=== PATIENT | female | born 1940 | race Two or more races ===

== ENCOUNTER 2020-07-03 09:00 | Outpatient (CLI) | payer OTHER | END 2020-07-03 23:59 | disposition home or self-care (01) | LOC: MSC 09:00 | PROVIDERS: ATTEND Internal Medicine | DX: N39.0 Urinary tract infection, site not specified (principal); R32 Unspecified urinary incontinence; M25.551 Pain in right hip; R41.89 Other symptoms and signs involving cognitive functions and awareness ==

== ENCOUNTER 2020-09-18 09:02 | Outpatient (CLI) | payer OTHER | END 2020-09-18 23:59 | disposition home or self-care (01) | LOC: MSC 09:02 | PROVIDERS: ATTEND Internal Medicine | DX: R06.02 Shortness of breath (principal); R05 Cough; N39.0 Urinary tract infection, site not specified; M25.551 Pain in right hip; R41.89 Other symptoms and signs involving cognitive functions and awareness ==

== ENCOUNTER 2020-10-09 08:42 | Outpatient (CLI) | payer OTHER | END 2020-10-09 23:59 | disposition home or self-care (01) | LOC: MSC 08:42 | PROVIDERS: ATTEND Internal Medicine | DX: B49 Unspecified mycosis (principal); M01.X52 Direct infection of left hip in infectious and parasitic diseases classified elsewhere; R06.02 Shortness of breath; R32 Unspecified urinary incontinence; M25.551 Pain in right hip; R41.89 Other symptoms and signs involving cognitive functions and awareness ==